=== PATIENT | female | born 1940 | race Hispanic/Latino ===

== ENCOUNTER 2019-07-10 18:51 | Emergency (ER) | payer MEDICARE ==
--- NOTE | 2019-07-10 19:23 | ER ---
Nurse's Notes [facility] Name: Angle Dowd Age: 79 yrs Sex: Female : 1940 Arrival Date: 07/10/2019 Time: 18:56 Bed Waiting [facility] MD: Diagnosis: ED Course: 07/09 18:56 Patient arrived in ED. as Administered Medications: No medications were administered Outcome: 19:22 Patient left the ED. ca1 Signatures: Kayli Juarez Cheryl RN RN ca1
== END 2019-07-10 19:22 | disposition left against medical advice (07) ==
LOC: ER 18:51
DX: Z53.21 Procedure and treatment not carried out due to patient leaving prior to being seen by health care provider (principal)

== ENCOUNTER → 2023-03-13 | Emergency (ER) | payer MEDICARE, OTHER ==
[~2023-03-13] MED LIST: ACETAMINOPHEN 500 MG TAB PO PRN; ASPIRIN 81 MG CHEWABLE TABLET ONE; HEPARIN 5000 UNIT/ML 1 ML VIAL ONE; HEPARIN/D5W 25,000 UNIT/500 ML BAG IV ONE; MORPHINE 2 MG/ML SYR ONE; ONDANSETRON 4 MG/2 ML VIAL IV PRN; ONDANSETRON 4 MG/2 ML VIAL ONE; POTASSIUM 25 MEQ EFFERV TAB ONE
--- OUTSIDE RECORDS SUMMARY | 2023-03-13 16:12 | XMS REPORT | Continuity of Care Document ---
Author Name Unknown Address [address] [place] [address] [facility] Address [address] [place] [address] Care Team Providers Care Gameplay Engineer Name Role Phone OG LEE Attending Clinician Unavailable LAURA ROY Attending Clinician Unavail able Kate Attending Clinician Unavailable RADHA Attending Clinician Unavailable Rizwan Prado Attending Clinician Unavailable MARIA ARMSTRONG Attending Clinician Unavail able Flores Vasquez Attending Clinician Unavailab DEBORAH Esparza Attending Clinician Unavailable PHYLICIA SANTO Attending Clinician Unavailable DAVIN GILLETTE Attending Clinician Unavailab SAEED Richards Attending Clinician Unavailable BRENDAN TAPIA Attending Clinician Unavailab VINICIUS Aguirre V. Attending Clinician Unavailable OG LEE Admitting Clinician Unavailable Pedro_F Admitting Clinician Unavailable ALINAA Admitting Clinician Unavailable MARIA ARMSTRONG Admitting Clinician Unavail able VINICIUS SHULTZ V. Admitting Clinician Unavailable Payers Payer Name Policy Type Policy Number Effective Date Expirati on Date Source [employer] (MEDICARE REPLACEMENT PPO) [id number] [facility] - MEDICARE COMPLETE (MEDICARE REPLACEMENT HMO) [id number] Encounters Start Date/Time End Date/Time Encounter Type Admission Type Attending Clinicians Care Facility Care Department Encounter ID Source 2023-01-13 20:25:00 Inpatient ER ROSANEENARY [facility] [id number] [facility] 2023-02-02 10:13:00 2023-02-02 10:13:00 Outpatient LAURA HANSEN [facility] [id number] [facility] 2023-01-20 10:37:00 2023-01-20 10:37:00 Outpatient LAURA HANSEN [facility] [id number] [facility] 2023-01-14 08:34:00 2023-01-19 16:17:00 Inpatient ER OG LEE [facility] [id number] [facility] 2023-01-14 08:34:00 2023-01-19 16:17:00 inpatient encounter [facility] [id number] [facility] [id number] 2023-01-14 00:00:00 2023-01-14 00:00:00 Outpatient Zunmaggiea_F [facility] [id number] [facility] 2021-09-09 04:01:00 2021-09-09 04:01:00 Outpatient DEDRICK FREEMAN [facility] [id number] [facility] 2020-12-12 20:47:00 2020-12-12 20:47:00 Outpatient EL Neret, Rizwan [facility] [id number] [facility] 2020-12-06 10:53:00 2020-12-06 10:53:00 Outpatient Rizwan Silva [facility] [id number] [facility] 2020-12-01 16:17:00 2020-12-05 14:25:00 Inpatient ER MARIA ARMSTRONG [facility] [id number] [facility] 2018-04-06 10:41:00 2018-04-06 10:41:00 Outpatient PedroLashonda [facility] [id number] [facility] 2017-12-22 08:01:00 2017-12-22 08:01:00 Outpatient Flores Adams [facility] [id number] [facility] 2017-12-09 11:37:00 2017-12-09 11:37:00 Outpatient Flores Adams [facility] [id number] [facility] 2014-09-05 15:36:00 2014-09-05 15:36:00 Outpatient SABA FARNAZ DEBORAH [facility] [id number] [facility] 2007-10-20 07:29:00 2007-10-20 07:29:00 Outpatient PHYLICIA NAPIER [facility] [id number] [facility] 2007-06-06 14:57:00 2007-06-06 16:30:00 Emergency ER DAVIN GILLETTE [facility] [id number] [facility] 2006-08-27 15:42:00 2006-08-27 15:42:00 Outpatient SAEED MARINA [facility] [id number] [facility] 2006-04-22 20:38:00 2006-04-23 03:35:00 Emergency ER BRENDAN TAPIA [facility] [id number] [facility] 2004-11-12 16:46:00 2004-11-14 10:30:00 Inpatient VINICIUS VANESSA [facility] [id number] [facility]
[2023-03-13 18:03] LABS: Protime INR 1.03
[2023-03-13 18:08] LABS: Absolute Lymphocytes (CBC) 2.2 K/uL (0.7-4.9); Hematocrit 40.3 % (36.0-45.0); Lymphocytes % 21.5 % (15.3-44.8); MCV 90.5 fL (80-100); MPV 8.1 fL (7.6-11.3); Platelets 204 thou/uL (152-406); RBC Red Blood Cell Count 4.45 M/uL (3.86-4.86)
[2023-03-13 18:12] LABS: Albumin 3.5 g/dL (3.4-5.0); Bilirubin Direct 0.2 mg/dL (0-0.2); Bilirubin Indirect, Calculated 0.5 mg/dL (0.2-0.8); Bilirubin Total 0.7 mg/dL (0.2-1.0); C-Reactive Protein 53.5 mg/L (<3.00); Magnesium 1.8 mg/dL (1.6-2.4); Potassium 3.1 mEq/L (3.5-5.1); Protein, Total 7.7 g/dL (6.4-8.2)
[2023-03-13 18:14] LABS: Troponin High Sensitivity 60.9 pg/mL (<58.9)
[2023-03-13 18:24] LABS: Ferritin 350.4 ng/mL (8-388)
--- NOTE | 2023-03-13 18:25 | RAD REPORT ---
EXAM DESCRIPTION: Deric Single View03/13/2023 6:05 pm CLINICAL HISTORY: Chest pain COMPARISON: none FINDINGS: A 6 millimeter nodular opacity mid right lung. Small calcified granulomas right lung. Left lung appears clear of acute infiltrate. Heart is normal size IMPRESSION: 6 millimeter nodular opacity mid right lung may represent a pulmonary nodule. Follow-up chest film in 6 months recommended for re-evaluation
--- NOTE | 2023-03-13 19:29 | P.HP ---
Certification for Inpatient Patient admitted to: Inpatient With expected LOS: >2 Midnights Practitioner: I am a practitioner with admitting privileges, knowledge of patient current condition, hospital course, and medical plan of care. Services: Services provided to patient in accordance with Admission requirements found in Title 42 Section 412.3 of the Code of Federal Regulations Patient History Date of Service: 03/13/23 Reason for admission: Generalized weakness, shortness of breathFever History of Present Illness: 84-year-old female with a past medical history of hypertension, atrial fibrillation, hyperlipidemia, rheumatoid arthritis, brought to ER with generalized weakness and fatigue also subjective fever which has been going on for the last 3 to 4 days since been progressively worsening and was brought to ER. Patient denies any chest pain. Review of Systems is unable to be obtained Physical Examination - Physical Exam General: Alert, In no apparent distress, Oriented x1 HEENT: Atraumatic, Normocephalic Neck: Supple Respiratory: Diminished, Crackles/rales Cardiovascular: Irregular heart rate/rhythm, Systolic murmur Capillary refill: <2 Seconds Gastrointestinal: Soft and benign, W/out hepatosplenomegaly, No ascites Musculoskeletal: No clubbing, No swelling Neurological: Other (Alert, Awake , non focal , Confused ) Lymphatics: No axilla or inguinal lymphadenopathy - Studies Laboratory Data (last 24 hrs) 03/13/23 03/13/23 03/13/23 17:40 17:40 17:40 WBC 10.10 Hgb 14.1 Hct 40.3 Plt Count 204 PT 11.3 INR 1.03 Sodium 135 L Potassium 3.1 L BUN 14 Creatinine 0.70 Glucose 119 H Magnesium 1.8 Total Bilirubin 0.7 AST 52 H ALT 44 Alkaline Phosphatase 95 Microbiology Data (last 24 hrs): 03/13/23 17:40 Nasopharnyx Influenza Type A Antigen Screen - Final 03/13/23 17:40 Nasopharnyx Influenza Type B Antigen Screen - Final 03/13/23 17:40 Throat Group A Streptococcus Rapid Screen - Final Assessment and Plan - Problems (Diagnosis) (1) COVID-19 Current Visit: Yes Status: Acute (2) Hypertension Current Visit: Yes Status: Acute (3) Hyperlipidemia Current Visit: Yes Status: Acute (4) Paroxysmal atrial fibrillation Current Visit: Yes Status: Acute Discharge Plan: Home - Advance Directives Does patient have a Living Will: No Does patient have a Durable POA for Healthcare: No - Code Status/Comfort Care Code Status: Full Code
--- NOTE | 2023-03-13 19:47 | RAD REPORT ---
EXAM DESCRIPTION: CT - Chest For Pe Angio - 03/13/2023 7:11 pm CLINICAL HISTORY: Chest pain COMPARISON: March 13, 2023 x-ray TECHNIQUE: Dynamically enhanced axial 3 mm thick images of the chest were obtained during administra tion of 100 mL Isovue 370 IV contrast. Coronal and oblique reconstruction images were generated and r eviewed. Exam utilizes a protocol for optimal evaluation of pulmonary arterial tree. Maximum intensity projections 3D imaging was utilized All CT scans are performed using dose optimization technique as appropriate and may include automated exposure control or mA/KV adjustment according to patient size. FINDINGS: A pulmonary embolus is not seen. A thoracic aortic aneurysm is not noted. A pleural effusion is not seen. Small pericardial effusion. Cardiomegaly. Occlusion left subclavian artery A lung consolidation is not present. A 9 millimeter right lower lobe nodule is mostly calcified. It does contain some noncalcified compone nt. Right lung calcified granulomas. IMPRESSION: Negative for a pulmonary embolism. Occlusion left subclavian artery 9 millimeter right lower lobe nodule mostly calcified most likely benign. A followup chest x-ray in 6 months recommended
--- NOTE | 2023-03-13 19:58 | EDPHYS ---
Physician Documentation [facility] Name: Angle Dowd Age: 83 yrs Sex: Female : 1940 Arrival Date: 03/13/2023 Time: 16:10 Bed 19 Private MD: ED Physician Matthew Das HPI: 03/13 17:00 This 83 yrs old Female presents to ER via EMS with complaints of COVID. cp 17:00 The patient or guardian reports cough, that is intermittent, flu symptoms, arthralgias, cp low-grade fever, no appetite, sore throat. Onset: The symptoms/episode began/occurred yesterday. Associated signs and symptoms: Pertinent positives: chest pain, started today, sore throat, Pertinent negatives: diarrhea, vomiting. Severity of symptoms: in the emergency department the symptoms are unchanged despite home interventions. Daughter reports patient tested positive for COVID-19 with home test. Daughter concerned that patient seems confused today. Historical: - Allergies: 16:55 No Known Allergies; nj1 - PMHx: 16:55 Hypertensive disorder; Depressive disorder; Coronary atherosclerosis; nj1 - Immunization history:: Client reports receiving the 2nd dose of the Covid vaccine. - Social history:: Smoking status: Patient/guardian denies using tobacco, Stopped _ months ago 2. ROS: 17:05 Constitutional: Positive for body aches, Negative for fever, cp 17:05 Eyes: Negative for injury, pain, redness, and discharge, cp 17:05 ENT: Positive for sore throat, Negative for drainage from ear(s), ear pain, difficulty swallowing, difficulty handling secretions, 17:05 Cardiovascular: Positive for chest pain, Negative for edema, palpitations, 17:05 Respiratory: Positive for cough, 17:05 Abdomen/GI: Negative for abdominal pain, vomiting, diarrhea, constipation, 17:05 : Negative for urinary symptoms, 17:05 Neuro: Positive for altered mental status, Negative for headache, 17:05 All other systems are negative, Exam: 17:10 Constitutional: The patient appears in no acute distress, alert, awake, cp non-diaphoretic, non-toxic, well developed, frail, uncomfortable, 17:10 Head/Face: Normocephalic, atraumatic. cp 17:10 Eyes: Periorbital structures: appear normal, Pupils: equal, round, and reactive to light and accomodation, Extraocular movements: intact throughout, Conjunctiva: normal, no exudate, no injection, Sclera: no appreciated abnormality, Lids and lashes: appear normal, bilaterally, 17:10 ENT: External ear(s): are unremarkable, Ear canal(s): are normal, clear, TM's: dullness, bilaterally, Nose: is normal, Mouth: Lips: dry, Oral mucosa: moist, Posterior pharynx: Airway: no evidence of obstruction, patent, erythema, that is mild, 17:10 Neck: ROM/movement: is normal, is supple, no meningismus, no nuchal rigidity, 17:10 Chest/axilla: Inspection: normal, Palpation: is normal, no crepitus, no tenderness, 17:10 Cardiovascular: Rate: normal, Rhythm: regular, Pulses: Pulses are 2+ in left radial artery. Edema: is not appreciated, JVD: is not appreciated, 17:10 Respiratory: the patient does not display signs of respiratory distress, Respirations: shallow respirations, that is mild, Breath sounds: decreased breath sounds, that are mild, throughout, 17:10 Abdomen/GI: Inspection: abdomen appears normal, Palpation: abdomen is soft and cp non-tender, in all quadrants, 17:10 Skin: cellulitis, is not appreciated, no rash present. cp 17:10 Neuro: Orientation: to person, place \T\ time. Mentation: able to follow commands, slow to respond, Motor: moves all fours, no focal deficits, 18:38 ECG was reviewed by the Attending Physician. cp Vital Signs: 16:53 BP 120 / 75; Pulse 89; Resp 18; Temp 97.7(TE); Pulse Ox 98% on R/A; Weight 41.73 kg; nj1 Height 4 ft. 11 in. ; 18:00 BP 125 / 73; Pulse 80; Resp 16; Pulse Ox 97% on R/A; me1 18:45 BP 122 / 97; Pulse 84; Resp 14; Pulse Ox 98% on R/A; me1 19:45 BP 113 / 88; Pulse 89; Resp 15; Pulse Ox 99% on R/A; me1 20:15 BP 122 / 86; Pulse 90; Resp 14; Pulse Ox 98% on R/A; me1 21:15 BP 116 / 83; Pulse 91; Resp 15; Pulse Ox 97% on R/A; me1 22:15 BP 108 / 82; Pulse 85; Resp 15; Pulse Ox 98% on R/A; me1 23:15 BP 129 / 82; Pulse 81; Resp 15; Pulse Ox 97% on R/A; me1 23:30 BP 127 / 87; Pulse 80; Resp 13; Pulse Ox 97% on R/A; me1 16:53 Body Mass Index 18.58 (41.73 kg, 149.86 cm) nj1 MDM: 16:58 Patient medically screened. chyna 19:55 ED course: transfer initiated to [facility] for vascular consult due occluded left cp subclavian artery noted on CT scan. 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 Will continue transfer to hospitalist services. 21:15 ED course: transfer declined at this time by DR Marquez after discussing conversation with cp vascular, exam, and CT findings. 21:45 ED course: Patient seen in ED by DR Paniagua who requests transfer to [facility] for cp vascular consult. 23:00 Data reviewed: vital signs, nurses notes, lab test result(s), EKG, radiologic studies, cp CT scan, plain films, I have discussed the patient's presentation/case with the attending Emergency Department Physician;. 23:15 ED course: VSS. After multiple discussions with DR Paniagua who requests transfer, patient cp is accepted to [facility] by DR Marquez. 03/13 16:58 Order name: Basic Metabolic Panel; Complete Time: 18:45 cp 03/13 18:15 Interpretation: Normal except: NA 135; K 3.1; GLUC 119; GFR 85. cp 03/13 16:58 Order name: CBC with Diff; Complete Time: 18:15 cp 03/13 21:11 Interpretation: Reviewed. cp 03/13 16:58 Order name: LFT's; Complete Time: 18:45 cp 03/13 18:16 Interpretation: Normal except: AST 52; GLOB 4.2; A/G 0.8. cp 03/13 16:58 Order name: Magnesium; Complete Time: 18:45 cp 03/13 16:58 Order name: NT PRO-BNP; Complete Time: 18:45 03/13 18:18 Interpretation: Abnormal: NT PRO-BNP 3068. 03/13 16:58 Order name: PT-INR; Complete Time: 18:15 03/13 16:58 Order name: Troponin HS; Complete Time: 18:45 03/13 18:19 Interpretation: Abnormal: Troponin HS 60.9. 03/13 16:58 Order name: Ferritin; Complete Time: 18:45 03/13 16:58 Order name: CRP; Complete Time: 18:45 03/13 18:18 Interpretation: Abnormal: C-REACTIVE PROT 53.50. 03/13 16:58 Order name: COVID-19 SARS RT PCR; Complete Time: 18:45 03/13 18:45 Interpretation: Abnormal: SARSCOV2 RT PCR POSITIVE. 03/13 16:58 Order name: Influenza Screen (a \T\ B); Complete Time: 18:45 03/13 16:58 Order name: Strep; Complete Time: 18:15 03/13 16:58 Order name: Lactate w/ 2H reflex if indic.; Complete Time: 18:15 03/13 18:08 Order name: Throat Culture EDFL 03/13 20:21 Order name: CBC with Automated Diff EDFL 03/13 20:21 Order name: Comprehensive Metabolic Panel [facility] 03/13 20:21 Order name: Troponin High Sensitivity [facility] 03/13 20:21 Order name: Troponin High Sensitivity; Complete Time: 22:27 EDFL 03/13 22:58 Interpretation: Troponin HS 8.9; Reviewed. 03/13 21:25 Order name: Ptt, Activated; Complete Time: 22:27 me1 03/13 16:58 Order name: XRAY Chest (1 view); Complete Time: 18:45 03/13 18:46 Order name: CT Chest For PE Angio; Complete Time: 19:49 03/13 19:51 Interpretation: Report reviewed. 03/13 16:58 Order name: EKG; Complete Time: 16:58 03/13 16:58 Order name: Cardiac monitoring; Complete Time: 18:35 03/13 16:58 Order name: EKG - Nurse/Tech; Complete Time: 18:35 03/13 16:58 Order name: IV Saline Lock; Complete Time: 17:45 cp 03/13 16:58 Order name: Labs collected and sent; Complete Time: 17:46 cp 03/13 16:58 Order name: O2 Per Protocol; Complete Time: 18:35 cp 03/13 16:58 Order name: O2 Sat Monitoring; Complete Time: 18:35 cp EC:38 Rate is 87 beats/min. Rhythm is regular. DC interval is normal. QRS interval is normal. cp QT interval is normal. T waves are Inverted in lead III. Administered Medications: 18:59 Drug: Ondansetron IVP 4 mg IVP once; over 2 minutes Route: IVP; Site: left wrist; me1 23:35 Follow up: Response: No adverse reaction me1 18:59 Drug: Potassium PO Effervescent Tablet 50 mEq PO once; dissolve in 4 ounces of water or me1 juice Route: PO; 23:35 Follow up: Response: No adverse reaction me1 19:00 Not Given (took 325mg asa this am. HELENE Lala aware. ): aspirinchewable tablet 324 me1 mg PO once; 81 mg tablets x 4 19:00 Drug: Potassium PO Effervescent Tablet 50 mEq PO once; dissolve in 4 ounces of water or me1 juice Route: PO; 23:35 Follow up: Response: No adverse reaction me1 19:00 Drug: morphine IVP or IV 1 mg IVP once over 4 mins Route: IVP; Infused Over: 4 mins; me1 Site: left wrist; 23:35 Follow up: Response: No adverse reaction me1 21:20 Drug: Heparin (OH-Bolus No thrombolytic) - HEParin IVP 60 units/kg IVP once; Max 5000 me1 units {Co-Signature: lg3 (Dior Jett RN).} Route: IVP; Site: left wrist; 23:36 Follow up: Response: No adverse reaction me1 21:21 Drug: Heparin (OH Drip) 12 units/kg/hr - ([place] [address] units, D5W IV 500 ml) IV at me1 calculated rate Per protocol; Max initial rate 1000 units/hr {Co-Signature: lg3 (Dior Jett RN).} Route: IV; Rate: calculated rate; Site: left wrist; 23:36 Follow up: Response: No adverse reaction; IV Status: Infusion continued upon transfer me1 Disposition Summary: 03/13/23 19:57 Transfer Ordered Notes: Transfer Location: [facility] cp Reason: Higher level of care cp Condition: Stable cp Problem: new cp Symptoms: have improved cp Accepting Physician: Doctor(03/13/23 23:57) me1 Diagnosis - Chest pain, unspecified cp Forms: - Medication Reconciliation Form cp - SBAR form cp Signatures: Dispatcher [employer] EDMatthew Cassidy MD MD cha Page, Corey, PA PA cp Lydia Walker, RN RN nj1 Laura Calloway RN RN me1 Dior Jett RN lg3 Corrections: (The following items were deleted from the chart) 23:57 19:57 Doctor cp [facility] 03/14 23:33 03/13 17:10 Cardiovascular: Rate: normal, Rhythm: regular, Edema: is not appreciated, cp JVD: is not appreciated, cp
--- NOTE | 2023-03-13 19:58 | ER ---
Nurse's Notes [facility] Name: Angle Dowd Age: 83 yrs Sex: Female : 1940 Arrival Date: 03/13/2023 Time: 16:10 Bed 19 Private MD: Diagnosis: Chest pain, unspecified Presentation: 03/13 16:26 Chief complaint: EMS states: Sore throat, malaise since yesterday, tested positive for me1 COVID at home. 16:26 Method Of Arrival: EMS: [facility] ct1 16:53 Chief complaint: Patient's son or daughter states: Sore throat, body aches, chills last nj1 night. Tested positive for COVID today. Coronavirus screen: Vaccine status: Patient reports receiving the 2nd dose of the covid vaccine. Ebola Screen: Patient denies travel to an Ebola-affected area in the 21 days before illness onset. Initial Sepsis Screen: Does the patient meet any 2 criteria? No. Patient's initial sepsis screen is negative. Does the patient have a suspected source of infection? No. Patient's initial sepsis screen is negative. Risk Assessment: Do you want to hurt yourself or someone else? Patient reports no desire to harm self or others. Onset of symptoms was March 12, 2023. 16:53 Acuity: ALTAGRACIA 3 nj1 Historical: - Allergies: 16:55 No Known Allergies; nj1 - PMHx: 16:55 Hypertensive disorder; Depressive disorder; Coronary atherosclerosis; nj1 - Immunization history:: Client reports receiving the 2nd dose of the Covid vaccine. - Social history:: Smoking status: Patient/guardian denies using tobacco, Stopped _ months ago 2. Screenin:48 [facility] ED Fall Risk Assessment (Adult) History of falling in the last 3 months, me1 including since admission No falls in past 3 months (0 pts) Confusion or Disorientation No (0 pts) Intoxicated or Sedated No (0 pts) Impaired Gait No (0 pts) Mobility Assist Device Used No (0 pt) Altered Elimination No (0 pt) Score/Fall Risk Level 0 - 2 = Low Risk Maintained a safe environment, Provided non-skid footwear, Hourly rounding (assess needs \T\ fall precautionary measures) done. Abuse screen: Denies threats or abuse. Nutritional screening: No deficits noted. Tuberculosis screening: No symptoms or risk factors identified. Assessment: 23:48 General: Appears uncomfortable, ill, well groomed, well developed, well nourished, me1 Behavior is calm, cooperative, appropriate for age, Reports Sore throat, malaise since yesterday, tested positive for COVID at home. Pain: Complains of pain in throat Pain does not radiate. Pain currently is 3 out of 10 on a pain scale. Quality of pain is described as tender, Pain began gradually, 2-3 days ago. Is continuous. Neuro: Level of Consciousness is awake, alert, obeys commands, Oriented to person, place, time, situation, Appropriate for age. Cardiovascular: Capillary refill < 3 seconds Patient's skin is warm and dry. Respiratory: Reports cough that is non-productive, persistent congestion Airway is patent Respiratory effort is even, unlabored, Respiratory pattern is regular, symmetrical. Vital Signs: 16:53 BP 120 / 75; Pulse 89; Resp 18; Temp 97.7(TE); Pulse Ox 98% on R/A; Weight 41.73 kg; nj1 Height 4 ft. 11 in. ; 18:00 BP 125 / 73; Pulse 80; Resp 16; Pulse Ox 97% on R/A; me1 18:45 BP 122 / 97; Pulse 84; Resp 14; Pulse Ox 98% on R/A; me1 19:45 BP 113 / 88; Pulse 89; Resp 15; Pulse Ox 99% on R/A; me1 20:15 BP 122 / 86; Pulse 90; Resp 14; Pulse Ox 98% on R/A; me1 21:15 BP 116 / 83; Pulse 91; Resp 15; Pulse Ox 97% on R/A; me1 22:15 BP 108 / 82; Pulse 85; Resp 15; Pulse Ox 98% on R/A; me1 23:15 BP 129 / 82; Pulse 81; Resp 15; Pulse Ox 97% on R/A; me1 23:30 BP 127 / 87; Pulse 80; Resp 13; Pulse Ox 97% on R/A; me1 16:53 Body Mass Index 18.58 (41.73 kg, 149.86 cm) [facility] ED Course: 16:13 Patient arrived in ED. ts1 16:51 Matthew Nava PA is PHCP. cp 16:51 Matthew Das MD is Attending Physician. cp 16:55 Triage completed. nj1 16:56 Arm band placed on right wrist. nj1 17:45 Lactate w/ 2H reflex if indic. Sent. bc6 17:45 Strep Sent. bc6 17:45 Influenza Screen (a \T\ B) Sent. bc6 17:45 COVID-19 SARS RT PCR Sent. bc6 17:45 CRP Sent. bc6 17:45 Ferritin Sent. bc6 17:46 Basic Metabolic Panel Sent. bc6 17:46 CBC with Diff Sent. bc6 17:46 LFT's Sent. bc6 17:46 Magnesium Sent. bc6 17:46 NT PRO-BNP Sent. bc6 17:46 PT-INR Sent. bc6 17:46 Troponin HS Sent. bc6 17:46 Inserted saline lock: 22 gauge in left forearm, using aseptic technique. Blood bc6 collected. 18:07 XRAY Chest (1 view) In Process Unspecified. EDMS 18:23 Laura Calloway, RN is Primary Nurse. me1 19:13 CT Chest For PE Angio In Process Unspecified. EDMS 20:06 initiated transfer with [facility] transfer center. Spoke with Luis Alberto Tobias. [facility] 21:27 Ptt, Activated Sent. me1 21:36 Julia from [facility] Transfer [place] called back to initated Doc to Doc with [address] Hospitalist and Matthew Nava. 22:20 Initiated transfer with [facility] transfer center. Spoke with Elizabeth Mccloud. jr 23:48 Patient has correct armband on for positive identification. Bed in low position. Call [facility] light in reach. Side rails up X 1. Provided Education on: POC. Verbalized understanding. . 23:48 No provider procedures requiring assistance completed. me1 23:57 IV discontinued, intact, bleeding controlled, No redness/swelling at site. Pressure me1 dressing applied. Administered Medications: 18:59 Drug: Ondansetron IVP 4 mg IVP once; over 2 minutes Route: IVP; Site: left wrist; me1 23:35 Follow up: Response: No adverse reaction me1 18:59 Drug: Potassium PO Effervescent Tablet 50 mEq PO once; dissolve in 4 ounces of water or me1 juice Route: PO; 23:35 Follow up: Response: No adverse reaction me1 19:00 Not Given (took 325mg asa this am. HELENE Lala aware. ): aspirinchewable tablet 324 me1 mg PO once; 81 mg tablets x 4 19:00 Drug: Potassium PO Effervescent Tablet 50 mEq PO once; dissolve in 4 ounces of water or me1 juice Route: PO; 23:35 Follow up: Response: No adverse reaction me1 19:00 Drug: morphine IVP or IV 1 mg IVP once over 4 mins Route: IVP; Infused Over: 4 mins; me1 Site: left wrist; 23:35 Follow up: Response: No adverse reaction me1 21:20 Drug: Heparin (MT-Bolus No thrombolytic) - HEParin IVP 60 units/kg IVP once; Max 5000 me1 units {Co-Signature: [email or web address] (Dior Jett RN).} Route: IVP; Site: left wrist; 23:36 Follow up: Response: No adverse reaction me1 21:21 Drug: Heparin (MT Drip) 12 units/kg/[place] - ([place] [address] units, D5W IV 500 ml) IV at me1 calculated rate Per protocol; Max initial rate 1000 units/hr {Co-Signature: [email or web address] (Dior Jett RN).} Route: IV; Rate: calculated rate; Site: left wrist; 23:36 Follow up: Response: No adverse reaction; IV Status: Infusion continued upon transfer me1 Medication: 23:48 VIS not applicable for this client. me1 Outcome: 19:57 ER care complete, transfer ordered by MD. caraballo 23:57 Transferred by ground EMS to [facility], Transfer form completed. me1 Note: Report given to TRISHA Shirley 23:57 Condition: stable 23:57 Instructed on the need for transfer, 23:57 Patient left the ED. me1 Signatures: Dispatcher [employer] EDMS Matthew Nava PA PA cp Carowatson, Breana bc6 Lydia Walker RN RN nj1 Ninfa Hare PAS PAS ts1 Laura Calloway RN RN me1 Doris Dickens jr12 Dior Jett RN lg3 Corrections: (The following items were deleted from the chart) 16:57 16:53 Pulse 89bpm; Resp 18bpm; Pulse Ox 98% RA; Temp 97.7F Temporal; 41.73 kg; Height 4 nj1 ft. 11 in.; BMI: 18.5; nj1 23:48 16:26 Chief complaint: EMS states: Sore throat, malaise since yesterday, tested me1 positive for COVID at home. nj1
[2023-03-14 01:30] VITALS: TEMP 97.7
[2023-03-14 01:44] VITALS: O2SAT 97
[2023-03-14 01:56] VITALS: BP 127/87
--- NOTE | 2023-03-15 17:03 | EKG ---
Test Date: 2023-03-13 Test Time: 18:31:45 Circulation Worker: MEASUREMENT RESULTS: Intervals: Rate: 87 WI: 164 QRSD: 70 QT: 378 QTc: 454 [place]: P: 64 WI: 164 QRS: 16 T: 18 INTERPRETIVE STATEMENTS: Sinus rhythm with premature atrial complexes with aberrant conduction Nonspecific T wave abnormality Abnormal ECG No previous ECG available for comparison Electronically Signed On 03-15-23 16:57:36 [employer] by Ben Cartagena
== END ==
LOC: ER 16:10
DX: U07.1 COVID-19 (principal); R41.82 Altered mental status, unspecified; R05.9 Cough, unspecified; I10 Essential (primary) hypertension
CPT/HCPCS: 96365; 93005; 87070; 85025; 80048; 36415; 83735; 85610; 80076; 87081; 83605; 85730; 84484 ×2; 82728; 83880; 87635; 86140; 87804 ×2; 71275; 71045; 96375; 99285; 96366; Q9967; J1644; J2270; J2405

== ENCOUNTER → 2023-04-17 | Emergency (ER) | payer OTHER ==
[~2023-04-17] MED LIST changes: -ACETAMINOPHEN 500 MG TAB PO PRN; +ALBUMIN HUMAN 25% 100 ML IV ONE; -ASPIRIN 81 MG CHEWABLE TABLET ONE; -HEPARIN 5000 UNIT/ML 1 ML VIAL ONE; -HEPARIN/D5W 25,000 UNIT/500 ML BAG IV ONE; -MORPHINE 2 MG/ML SYR ONE; +NA CHLORIDE 0.9% 100 ML ONE; +NA CHLORIDE 0.9% 3,000 ML ONE; +NS KCL 20MEQ 1,000 ML IV ONE; -ONDANSETRON 4 MG/2 ML VIAL IV PRN; +PANTOPRAZOLE 40 MG INJ ONE; +PIPERACIL/TAZO 3.375 GM VIAL IV ONE; -POTASSIUM 25 MEQ EFFERV TAB ONE
[2023-04-17 08:12] LABS: Protime INR 1.04
[2023-04-17 08:13] LABS: Absolute Lymphocytes (CBC) 3.4 K/uL (0.7-4.9); Hematocrit 35.6 % (36.0-45.0); Lymphocytes % 19.9 % (15.3-44.8); MCV 97.4 fL (80-100); MPV 8.2 fL (7.6-11.3); Platelets 527 thou/uL (152-406); RBC Red Blood Cell Count 3.65 M/uL (3.86-4.86)
--- NOTE | 2023-04-17 08:16 | RAD REPORT ---
EXAM DESCRIPTION: CTAbdomen Pelvis Wo Contrast - 04/17/2023 8:03 am CLINICAL HISTORY: ABD PAIN COMPARISON: Chest For Pe Angio dated 03/13/2023 TECHNIQUE: CT of the abdomen and pelvis was performed. All CT scans are performed using dose optimization technique as appropriate and may include automated exposure control or mA/KV adjustment according to patient size. FINDINGS: Lower chest: Small pericardial effusion. Coronary artery calcifications. Mitral annular ca lcifications. Tiny left pleural effusion. Chronic lung changes Liver: No acute abnormality or suspicious lesions. Biliary: Distended gallbladder which is nonspecific. Extrahepatic biliary duct dilatation. The common bile duct measures 9 millimeters. Stomach: No significant focal abnormality. Duodenum: No significant focal abnormality. Pancreas: No significant abnormality. Spleen: No significant abnormality. Adrenal: No suspicious lesions. Adrenal thickening. Kidney/ureter: No hydronephrosis. No renal calculi. Retroperitoneum: No retroperitoneal adenopathy. Vascular: No aneurysm. Heavily calcified abdominal aorta. Bowel: Moderate stool in the descending colon, sigmoid, and rectum.. Peritoneum: No ascites or free air. Bladder: Grossly unremarkable. Reproductive: No adnexal masses. Bones: Age indeterminate T12 and L1 compression fractures. These levels were not included in the fiel d of view on the prior chest CT from 03/13/2023. Other: n/a IMPRESSION: No definite acute intra-abdominal or pelvic finding. Mild constipation. Extrahepatic biliary ductal dilatation of uncertain clinical significance. The gallbladder is disten ded but no pericholecystic inflammatory changes. Correlate with LFTs. Probably either subacute or chronic T12 and L1 compression fractures.
[2023-04-17 08:20] LABS: SARS-CoV-2 Antigen Rapid Res Negative (Negative)
[2023-04-17 08:21] LABS: Albumin 3.2 g/dL (3.4-5.0); Bilirubin Direct 0.7 mg/dL (0-0.2); Bilirubin Indirect, Calculated 0.6 mg/dL (0.2-0.8); Bilirubin Total 1.3 mg/dL (0.2-1.0); Protein, Total 6.8 g/dL (6.4-8.2)
--- NOTE | 2023-04-17 08:30 | RAD REPORT ---
EXAM DESCRIPTION: RAD - Chest Single View - 04/17/2023 8:20 am CLINICAL HISTORY: COUGH COMPARISON: Chest Single View dated 03/13/2023 FINDINGS: Lines: None. Lungs: No evidence of edema or pneumonia. Calcified right upper lobe nodules . Pleural: No significant pleural effusions or pneumothorax. Cardiac: Similar size and configuration Mediastinum: Within normal limits. Bones: No acute fractures. Other: None IMPRESSION: No acute cardiopulmonary disease.
[2023-04-17 08:32] LABS: Magnesium 1.9 mg/dL (1.6-2.4); Potassium 3.1 mEq/L (3.5-5.1)
[2023-04-17 08:33] LABS: Troponin High Sensitivity 202.7 pg/mL (<58.9)
--- NOTE | 2023-04-17 09:52 | RAD REPORT ---
EXAM DESCRIPTION: US - Abdomen Exam Limited - 04/17/2023 9:38 am CLINICAL HISTORY: ABD PAIN COMPARISON: Abdomen Pelvis Wo Contrast dated 04/17/2023 FINDINGS: The gallbladder demonstrates no gallstones. Borderline gallbladder wall thickening measuri ng 3 millimeters. The common bile duct is dilated measuring 9 mm. The gallbladder is distended. A son ographic Meade's sign was reported. The liver demonstrates no findings of intrahepatic biliary dilatation. IMPRESSION: Negative for cholelithiasis but positive sonographic Meade's sign with dilated gallblad iesha and borderline gallbladder wall thickening could indicate cholecystitis (possibly acalculous). In addition, the common bile duct is dilated. MRCP/ERCP could further evaluate the common bile duct.
--- NOTE | 2023-04-17 10:00 | ER ---
Nurse's Notes [facility] Name: Angle Dowd Age: 83 yrs Sex: Female : 1940 Arrival Date: 04/17/2023 Time: 07:08 Bed 13 Private MD: Diagnosis: Severe sepsis with septic shock;Other cholelithiasis with obstruction-dilated CBD;Dehydration;Elevated white blood cell count;Hypokalemia;Non ST elevation OR;Vomiting;GI Bleed/ Gastrointestinal hemorrhage, unspecified-UPPER , STABLE;Paroxysmal atrial fibrillation Presentation: 04/17 07:28 Chief complaint: Patient's son or daughter states: Refusing food/drink x 3 days, c/o hb abdominal pain yesterday, dark vomit x 3 today. Coronavirus screen: At this time, the client does not indicate any symptoms associated with coronavirus-19. Ebola Screen: No symptoms or risks identified at this time. Initial Sepsis Screen: Does the patient meet any 2 criteria? RR > 20 per min. HR > 90 bpm. Yes Does the patient have a suspected source of infection? No. Patient's initial sepsis screen is negative. Risk Assessment: Do you want to hurt yourself or someone else? Patient reports no desire to harm self or others. Onset of symptoms was April 14, 2023. 07:28 Method Of Arrival: Wheelchair hb 07:28 Acuity: ALTAGRACIA 2 hb Triage Assessment: 07:30 General: Appears in no apparent distress. Behavior is calm, cooperative, appropriate ko1 for age. GI: Reports lower abdominal pain, upper abdominal pain, nausea, vomiting. Historical: - Allergies: 07:31 No Known Allergies; hb - Home Meds: 07:31 sulfasalazine 500 mg oral tablet 2 times per day [Active]; escitalopram oxalate 5 mg hb oral tablet [Active]; diclofenac sodium 50 mg oral tablet, delayed release (enteric coated) every 12 hours [Active]; aspirin 325 mg Oral tablet daily [Active]; amlodipine 5 mg tablet as needed [Active]; nitroglycerin 0.4 mg SL Tablet, Sublingual as needed [Active]; - PMHx: 07:31 coronary atherosclerosis; depressive disorder; Hypertensive disorder; hb - Immunization history:: Adult Immunizations unknown. - Social history:: Smoking status: Patient/guardian denies using tobacco. Screenin:[facility] Fall Risk Assessment (Adult) History of falling in the last 3 months, ko1 including since admission No falls in past 3 months (0 pts) Confusion or Disorientation No (0 pts) Intoxicated or Sedated No (0 pts) Impaired Gait Yes (1 pt) Mobility Assist Device Used Yes (1 pt) Altered Elimination Yes (1 pt) Score/Fall Risk Level 3 or more points = High Risk Oriented to surroundings, Maintained a safe environment, Educated pt \T\ family on fall prevention, incl call for assistance when getting out of bed, Assessed \T\ reinforced patient's understanding of fall precautions, Provided non-skid footwear, Hourly rounding (assess needs \T\ fall precautionary measures) done, Used ambulatory aids as needed (educated on \T\ assisted with), Used gait belt as appropriate Implemented a Fall Risk Plan of Care, Apply high fall risk patient identification: yellow non skid footwear/ fall signage, Remained w/in arm's length of patient and in sight while toileting, Offered frequent toileting (1:1 observation), Remained with patient while ambulating, Utilized family, sitter, or virtual cryogenics engineer as indicated. Abuse screen: Denies threats or abuse. Denies injuries from another. Nutritional screening: No deficits noted. Tuberculosis screening: No symptoms or risk factors identified. Assessment: 07:30 Pain: Complains of pain in abdomen. GI: Abdomen is non-distended. ko1 Vital Signs: 07:28 BP 80 / 55; Pulse 166; Resp 22; Temp 98.3(O); Pulse Ox 99% on R/A; Weight 41.73 kg; hb Height 5 ft. 0 in. ; Pain 5/10; 08:49 BP 106 / 62; Pulse 97; Resp 14; Pulse Ox 97% ; ko1 09:30 BP 80 / 53; Pulse 72; Resp 17; Pulse Ox 99% ; ko1 10:15 BP 74 / 53; Pulse 64; Resp 16; Pulse Ox 100% on R/A; ko1 10:45 BP 96 / 78; Pulse 80; Resp 15; Pulse Ox 100% ; ko1 11:15 BP 93 / 79; Pulse 63; Resp 16; Pulse Ox 99% ; ko1 12:20 BP 99 / 69; Pulse 66; Resp 15; Pulse Ox 98% ; ko1 07:28 Body Mass Index 17.97 (41.73 kg, 152.4 cm) hb 07:28 Pain Scale: Adult hb [place] Coma Score: 08:06 Eye Response: spontaneous(4). Motor Response: obeys commands(6). Verbal Response: chyna oriented(5). Total: 15. NIH Stroke Scale Scores: 08:06 NIHSS Score: 0 chyna ED Course: 07:11 Patient arrived in ED. gm2 07:12 Matthew Das MD is Attending Physician. chyna 07:16 Jeimy Woo, TRISHA is Primary Nurse. ko1 07:30 Patient has correct armband on for positive identification. Placed in gown. Bed in low ko1 position. Call light in reach. Side rails up X2. Client placed on continuous cardiac and pulse oximetry monitoring. NIBP monitoring applied. electronic device monitor on. Door closed. Noise minimized. Lights dimmed. Warm blanket given. Pillow given. 07:30 No provider procedures requiring assistance completed. ko1 07:31 Triage completed. hb 07:38 Arm band placed on. hb 07:45 Inserted saline lock: 22 gauge in right antecubital area, using aseptic technique. ko1 Blood collected. 08:03 TSH Sent. ko1 08:03 Lactate w/ 2H reflex if indic. Sent. ko1 08:03 Blood Culture Adult (2) Sent. ko1 08:04 SARS RAPID Sent. ko1 08:04 Flu Sent. ko1 08:04 Lipase Sent. ko1 08:04 Basic Metabolic Panel Sent. ko1 08:04 CBC with Diff Sent. ko1 08:04 LFT's Sent. ko1 08:04 Magnesium Sent. ko1 08:04 NT PRO-BNP Sent. ko1 08:04 PT-INR Sent. ko1 08:04 Troponin HS Sent. ko1 08:05 CT Abd/Pelvis - Without Contrast In Process Unspecified. EDMS 08:13 TSH Sent. ko1 08:13 Type And Screen Sent. ko1 08:22 XRAY Chest (1 view) In Process Unspecified. EDMS 08:35 Bb Add On Sent. ko1 09:39 US Abdomen Limited In Process Unspecified. EDMS 09:[address] Das with Saksia Rondon Rn from the [facility] Transfer eb center. 10:[address] Sheriff the hospitalist application software developer or [facility] with Dr. Das for eb patient transfer consultation. 10:44 Urinalysis w/ reflexes Sent. ko1 11:38 administrative approval given by Saskia Rondon Rn/ patient has been accepted [facility] 16 tower 1620/ Dr. Bing Sheriff has accepted the patient in transfer/ report to be called to [phone]. 12:20 Provided Education on: na. ko1 12:20 Patient transferred, IV remains in place. ko1 Administered Medications: 08:08 Drug: NS 0.9% IV 1000 ml IV at 1 bolus Per protocol; 1000 mL bolus Route: IV; Rate: 1 ko1 bolus; Site: right antecubital; 11:37 Follow up: Response: No adverse reaction; IV Status: Completed infusion; IV Intake: ko1 1000ml 08:14 Drug: Pantoprazole IVP 80 mg IVP once Route: IVP; Site: right antecubital; ko1 11:37 Follow up: Response: No adverse reaction ko1 08:42 Drug: Ondansetron IVP 4 mg IVP once; over 2 minutes Route: IVP; Site: right antecubital;ko1 11:35 Follow up: Response: No adverse reaction; Nausea is decreased ko1 08:48 Drug: Piperacillin-Tazobactam IVPB 3.375 grams IVPB once over 60 mins; (mix in NS 100 ko1 mL) Route: IVPB; Rate: 100 ml/hr; Infused Over: 60 mins; Site: right antecubital; Delivery: Secondary tubing; 11:36 Follow up: Response: No adverse reaction; IV Status: Completed infusion; IV Intake: ko1 100ml 09:01 Not Given (Duplicate Order): ns 0.9% 1000 ml IV at 125 ml/hr continuous chyna 09:55 Drug: NS 0.9% IV 500 ml IV at bolus once Route: IV; Rate: bolus; Site: right ko1 antecubital; 11:36 Follow up: Response: No adverse reaction; IV Status: Completed infusion; IV Intake: ko1 500ml 10:44 Drug: NS 0.9% with KCl IV 20 mEq/L 1000 ml IV at 125 ml/hr continuous Route: IV; Rate: ko1 125 ml/hr; Site: right antecubital; 11:03 Drug: Albumin IVPB 25 grams 100 ml IVPB once; (Note: Albumin 25% concentration) Volume: ko1 100 ml; Route: IVPB; Site: right antecubital; 11:35 Follow up: Response: No adverse reaction ko1 11:36 Follow up: IV Status: Completed infusion; IV Intake: 100ml ko1 11:04 Drug: Solu-CORTEF IVP 100 mg IVP once Route: IVP; Site: right antecubital; ko1 11:35 Follow up: Response: No adverse reaction ko1 Medication: 07:30 VIS not applicable for this client. ko1 Intake: 11:36 IV: 100ml; Total: 100ml. ko1 11:36 IV: 100ml; Total: 200ml. ko1 11:36 IV: 500ml; Total: 700ml. ko1 11:37 IV: 1000ml; Total: 1700ml. ko1 Outcome: 09:59 ER care complete, transfer ordered by chyna 12:20 Transferred by private ambulance [place]. to [facility], Transfer ko1 form completed. X-rays sent w/ patient. 12:20 Condition: improved 12:20 Instructed on the need for transfer, 12:28 Patient left the ED. ko1 NIH Stroke Scale - NIH Stroke Score Date: 04/17/2023 Time: 08:06 Total Score = 0 10. Dysarthria (speech clarity - read or repeat words) - 0(Normal) 11. Extinction and Inattention (visual/tactile/auditory/spatial/personal) - 0(No abnormality) 1a. Level of Consciousness (LOC) - 0(Alert) 1b. Level of Consciousness (LOC) (Month \T\ Age) - 0(Both) 1c. LOC Commands (Open \T\ Closes Eyes/Coffee Sampler) - 0(Both) 2. Best Gaze (Lateral Gaze Paresis) - 0(Normal) 3. Visual Field Loss - 0(No visual loss) 4. Facial Palsy - 0(Normal) 5a. Left Arm: Motor (10-second hold) - 0(No drift) 5b. Right Arm: Motor (10-second hold) - 0(No drift) 6a. Left Leg: Motor (5-second hold - always test supine) - 0(No drift) 6b. Right Leg: Motor (5-second hold - always test supine) - 0(No drift) 7. Limb Ataxia (finger/nose \T\ heel/loera - test with eyes open) - 0(Absent) 8. Sensory Loss (pinprick arms/legs/face) - 0(Normal) 9. Best Language: Aphasia (description/naming/reading) - 0(No aphasia) Initials: chyna Signatures: Dispatcher [employer] Matthew Jones MD MD cha Baxter, Heather, RN RN hb Botello, Elizabeth eb Oliver, Kathy, RN RN jose luis1 Karen Leahy gm2 Corrections: (The following items were deleted from the chart) 10:36 10:30 connected the hospitalist application software developer or [facility] with Dr. Das for eb patient transfer consultation. 11:52 09:[address] Das with Nancy Zeng Rn from the [facility] Transfer center. eb
--- NOTE | 2023-04-17 10:00 | EDPHYS ---
Physician Documentation [facility] Name: Angle Dowd Age: 83 yrs Sex: Female : 1940 Arrival Date: 04/17/2023 Time: 07:08 Bed 13 Private MD: ED Physician Matthew Das HPI: 04/17 08:01 This 83 yrs old Female presents to ER via Wheelchair with complaints of chyna General Weakness, Decreased Appetite, Nausea/Vomiting. 08:01 The patient presents to the emergency department with nausea, vomiting, described as chyna coffee ground in nature, dark brown, abdominal pain, described as crampy. Onset: The symptoms/episode began/occurred 3 day(s) ago. Historical: - Allergies: :31 No Known Allergies; hb - Home Meds: :31 sulfasalazine 500 mg oral tablet 2 times per day [Active]; escitalopram oxalate 5 mg hb oral tablet [Active]; diclofenac sodium 50 mg oral tablet, delayed release (enteric coated) every 12 hours [Active]; aspirin 325 mg Oral tablet daily [Active]; amlodipine 5 mg tablet as needed [Active]; nitroglycerin 0.4 mg SL Tablet, Sublingual as needed [Active]; - PMHx: 07:31 coronary atherosclerosis; depressive disorder; Hypertensive disorder; hb - Immunization history:: Adult Immunizations unknown. - Social history:: Smoking status: Patient/guardian denies using tobacco. ROS: 08:06 Constitutional: Negative for fever, chills, and weight loss, Eyes: Negative for injury, chyna pain, redness, and discharge, ENT: Negative for injury, pain, and discharge, Neck: Negative for injury, pain, and swelling, Cardiovascular: Negative for chest pain, palpitations, and edema, Respiratory: Negative for shortness of breath, cough, wheezing, and pleuritic chest pain, Back: Negative for injury and pain, : Negative for injury, bleeding, discharge, and swelling, MS/Extremity: Negative for injury and deformity, Neuro: Negative for headache, weakness, numbness, tingling, and seizure, Psych: Negative for depression, anxiety, suicide ideation, homicidal ideation, and hallucinations, Allergy/Immunology: Negative for hives, rash, and allergies, Endocrine: Negative for neck swelling, polydipsia, polyuria, polyphagia, and marked weight changes, 08:06 Abdomen/GI: Positive for abdominal pain, nausea and vomiting, hematemesis, Exam: 08:06 Constitutional: This is a well developed, well nourished patient who is awake, alert, chyna and in no acute distress. Head/Face: Normocephalic, atraumatic. Eyes: Pupils equal round and reactive to light, extra-ocular motions intact. Lids and lashes normal. Conjunctiva and sclera are non-icteric and not injected. Cornea within normal limits. Periorbital areas with no swelling, redness, or edema. ENT: Nares patent. No nasal discharge, no septal abnormalities noted. Tympanic membranes are normal and external auditory canals are clear. Oropharynx with no redness, swelling, or masses, exudates, or evidence of obstruction, uvula midline. Mucous membranes moist. Neck: Trachea midline, no thyromegaly or masses palpated, and no cervical lymphadenopathy. Supple, full range of motion without nuchal rigidity, or vertebral point tenderness. No Meningismus. Chest/axilla: Normal chest wall appearance and motion. Nontender with no deformity. No lesions are appreciated. Cardiovascular: Regular rate and rhythm with a normal S1 and S2. No gallops, murmurs, or rubs. Normal PMI, no JVD. No pulse deficits. Respiratory: Lungs have equal breath sounds bilaterally, clear to auscultation and percussion. No rales, rhonchi or wheezes noted. No increased work of breathing, no retractions or nasal flaring. Abdomen/GI: Soft, non-tender, with normal bowel sounds. No distension or tympany. No guarding or rebound. No evidence of tenderness throughout. Back: No spinal tenderness. No costovertebral tenderness. Full range of motion. Female : Normal external genitalia. MS/ Extremity: Pulses equal, no cyanosis. Neurovascular intact. Full, normal range of motion. Neuro: Awake and alert, GCS 15, oriented to person, place, time, and situation. Cranial nerves II-XII grossly intact. Motor strength 5/5 in all extremities. Sensory grossly intact. Cerebellar exam normal. Normal gait. Psych: Awake, alert, with orientation to person, place and time. Behavior, mood, and affect are within normal limits. 08:06 ECG was reviewed by the Attending Physician. 08:06 Abdomen/GI: Inspection: abdomen appears normal, Bowel sounds: normal, Palpation: mild abdominal tenderness, in all quadrants, Rectal exam: rectal tone normal, Stool: guaiac negative, hemorrhoid(s), are not appreciated, mass, is not appreciated, swelling, is not appreciated, tenderness, is not appreciated, Liver: no appreciated palpable abnormalities, Hernia: not appreciated, 08:06 Skin: Appearance: Color: pale, Temperature: normal temperature, Moisture: normal moisture, petechiae, not noted, ecchymosis, not noted, flushing, not noted, abscess, not appreciated, cellulitis, is not appreciated, 08:17 ECG was reviewed by the Attending Physician. chyna Vital Signs: 07:28 BP 80 / 55; Pulse 166; Resp 22; Temp 98.3(O); Pulse Ox 99% on R/A; Weight 41.73 kg; hb Height 5 ft. 0 in. ; Pain 5/10; 08:49 BP 106 / 62; Pulse 97; Resp 14; Pulse Ox 97% ; ko1 09:30 BP 80 / 53; Pulse 72; Resp 17; Pulse Ox 99% ; ko1 10:15 BP 74 / 53; Pulse 64; Resp 16; Pulse Ox 100% on R/A; ko1 10:45 BP 96 / 78; Pulse 80; Resp 15; Pulse Ox 100% ; ko1 11:15 BP 93 / 79; Pulse 63; Resp 16; Pulse Ox 99% ; ko1 12:20 BP 99 / 69; Pulse 66; Resp 15; Pulse Ox 98% ; ko1 07:28 Body Mass Index 17.97 (41.73 kg, 152.4 cm) hb 07:28 Pain Scale: Adult hb NIH Stroke Scale Scores: 08:06 NIHSS Score: 0 chyna Wei Coma Score: 08:06 Eye Response: spontaneous(4). Motor Response: obeys commands(6). Verbal Response: chyna oriented(5). Total: 15. MDM: 07:12 Patient medically screened. chyna 08:16 Differential diagnosis: arrythmia, dehydration, Nonspecific abd pain, gastritis, chyna pancreatitis. Data reviewed: vital signs, nurses notes, EMS record, lab test result(s), EKG, radiologic studies, CT scan, plain films. Consideration of Admission/Observation Patient was admitted/placed on observation. Escalation of care including admission/observation considered. I considered the following discharge prescriptions or medication management in the emergency department Medications were administered in the Emergency Department. See MAR. Independent interpretation of the following test(s) in the Emergency Department EKG: See my EKG interpretation above. Test considered but Not performed: Ultrasound no abd usg. Care significantly affected by the following chronic conditions: Hypertension, Liver Disease, cad, deperssive. 04/17 07:21 Order name: Basic Metabolic Panel; Complete Time: 09:00 [facility] 04/17 07:21 Order name: CBC with Diff; Complete Time: 08:20 [facility] 04/17 07:21 Order name: LFT's; Complete Time: 09:00 [facility] 04/17 07:21 Order name: Magnesium; Complete Time: 09:00 [facility] 04/17 07:21 Order name: NT PRO-BNP; Complete Time: 09:00 [facility] 04/17 07:21 Order name: PT-INR; Complete Time: 08:20 [facility] 04/17 07:21 Order name: Troponin HS; Complete Time: 09:00 [facility] 04/17 07:21 Order name: Lipase; Complete Time: 09:00 [facility] 04/17 07:21 Order name: Urinalysis w/ reflexes [facility] 04/17 07:21 Order name: Flu; Complete Time: 09:00 [facility] 04/17 07:21 Order name: SARS RAPID; Complete Time: 09:00 [facility] 04/17 07:21 Order name: Blood Culture Adult (2) [facility] 04/17 07:21 Order name: Lactate w/ 2H reflex if indic.; Complete Time: 09:00 [facility] 04/17 07:30 Order name: TSH; Complete Time: 09:00 [facility] 04/17 08:02 Order name: Type And Screen; Complete Time: 09:40 [facility] 04/17 08:10 Order name: Bb Add On eb 04/17 08:20 Order name: AMMONIA; Complete Time: 10:30 [facility] 04/17 09:15 Order name: ABO/RH no charge; Complete Time: 09:40 EDMS 04/17 11:31 Order name: Lactate Sepsis 2 HR Follow-up [facility] 04/17 07:21 Order name: XRAY Chest (1 view); Complete Time: 09:00 [facility] 04/17 07:21 Order name: CT Abd/Pelvis - Without Contrast; Complete Time: 08:20 [facility] 04/17 08:21 Order name: US Abdomen Limited; Complete Time: 10:30 [facility] 04/17 07:21 Order name: EKG; Complete Time: 07:22 [facility] 04/17 07:21 Order name: Cardiac monitoring; Complete Time: 08:04 [facility] 04/17 07:21 Order name: EKG - Nurse/Tech; Complete Time: 08:13 04/17 07:21 Order name: IV Saline Lock; Complete Time: 08:04 [facility] 04/17 07:21 Order name: Labs collected and sent; Complete Time: 08:04 [facility] 04/17 07:21 Order name: O2 Per Protocol; Complete Time: 08:04 [facility] 04/17 07:21 Order name: O2 Sat Monitoring; Complete Time: 08:04 [facility] 04/17 08:20 Order name: IV Saline Lock - Large Bore; Complete Time: 08:36 [facility] EC:17 Rate is 82 beats/min. Rhythm is regular. QRS [place] is Normal. MD interval is normal. QRS chyna interval is prolonged at 497 msec. QT interval is normal. No Q waves. T waves are Normal. ST Segment is depressed in leads I, II, III, aVL, aVF, V1, V2, V3, V4, V5, V6. Clinical impression: NSR w/ Non-specific ST/T Changes. Interpreted by me. Reviewed by me. Administered Medications: 08:08 Drug: NS 0.9% IV 1000 ml IV at 1 bolus Per protocol; 1000 mL bolus Route: IV; Rate: 1 ko1 bolus; Site: right antecubital; 11:37 Follow up: Response: No adverse reaction; IV Status: Completed infusion; IV Intake: ko1 1000ml 08:14 Drug: Pantoprazole IVP 80 mg IVP once Route: IVP; Site: right antecubital; ko1 11:37 Follow up: Response: No adverse reaction ko1 08:42 Drug: Ondansetron IVP 4 mg IVP once; over 2 minutes Route: IVP; Site: right antecubital;ko1 11:35 Follow up: Response: No adverse reaction; Nausea is decreased ko1 08:48 Drug: Piperacillin-Tazobactam IVPB 3.375 grams IVPB once over 60 mins; (mix in NS 100 ko1 mL) Route: IVPB; Rate: 100 ml/hr; Infused Over: 60 mins; Site: right antecubital; Delivery: Secondary tubing; 11:36 Follow up: Response: No adverse reaction; IV Status: Completed infusion; IV Intake: ko1 100ml 09:01 Not Given (Duplicate Order): ns 0.9% 1000 ml IV at 125 ml/hr continuous chyna 09:55 Drug: NS 0.9% IV 500 ml IV at bolus once Route: IV; Rate: bolus; Site: right ko1 antecubital; 11:36 Follow up: Response: No adverse reaction; IV Status: Completed infusion; IV Intake: ko1 500ml 10:44 Drug: NS 0.9% with KCl IV 20 mEq/L 1000 ml IV at 125 ml/hr continuous Route: IV; Rate: ko1 125 ml/hr; Site: right antecubital; 11:03 Drug: Albumin IVPB 25 grams 100 ml IVPB once; (Note: Albumin 25% concentration) Volume: ko1 100 ml; Route: IVPB; Site: right antecubital; 11:35 Follow up: Response: No adverse reaction ko1 11:36 Follow up: IV Status: Completed infusion; IV Intake: 100ml ko1 11:04 Drug: Solu-CORTEF IVP 100 mg IVP once Route: IVP; Site: right antecubital; ko1 11:35 Follow up: Response: No adverse reaction ko1 Disposition Summary: 04/17/23 09:59 Transfer Ordered Notes: Transfer Location: [facility] chyna Reason: Higher level of care chyna Condition: Stable chyna Problem: new chyna Symptoms: have improved chyna Accepting Physician: to chayo leal(04/17/23 12:28) ko1 Diagnosis - Severe sepsis with septic shock chyna - Other cholelithiasis with obstruction - dilated CBD chyna - Dehydration chyna - Elevated white blood cell count chyna - Hypokalemia chyna - Non ST elevation MA chyna - Vomiting chyna - GI Bleed/ Gastrointestinal hemorrhage, unspecified - UPPER , STABLE chyna - Paroxysmal atrial fibrillation chyna Forms: - Medication Reconciliation Form chyna - SBAR form chyna NIH Stroke Scale - NIH Stroke Score Date: 04/17/2023 Time: 08:06 Total Score = 0 10. Dysarthria (speech clarity - read or repeat words) - 0(Normal) 11. Extinction and Inattention (visual/tactile/auditory/spatial/personal) - 0(No abnormality) 1a. Level of Consciousness (LOC) - 0(Alert) 1b. Level of Consciousness (LOC) (Month \T\ Age) - 0(Both) 1c. LOC Commands (Open \T\ Closes Eyes/Job Setter) - 0(Both) 2. Best Gaze (Lateral Gaze Paresis) - 0(Normal) 3. Visual Field Loss - 0(No visual loss) 4. Facial Palsy - 0(Normal) 5a. Left Arm: Motor (10-second hold) - 0(No drift) 5b. Right Arm: Motor (10-second hold) - 0(No drift) 6a. Left Leg: Motor (5-second hold - always test supine) - 0(No drift) 6b. Right Leg: Motor (5-second hold - always test supine) - 0(No drift) 7. Limb Ataxia (finger/nose \T\ heel/loera - test with eyes open) - 0(Absent) 8. Sensory Loss (pinprick arms/legs/face) - 0(Normal) 9. Best Language: Aphasia (description/naming/reading) - 0(No aphasia) Initials: chyna Signatures: Dispatcher [employer] EDMatthew Cassidy MD MD cha Baxter, Heather RN Jeimy Yarbrough, TRISHA RN ko1 Corrections: (The following items were deleted from the chart) 10:02 09:59 to [facility] chyna clemente 12:28 10:02 to [facility] chyna [email or web address]
[2023-04-17 10:53] LABS: Specific Gravity 1.023 (1.005-1.030); Transitional Epithelial <5 /HPF (None Seen); Urine Bacteria <20 /HPF (<20); Urine Bilirubin NEGATIVE (Negative); Urine Blood Negative (Negative); Urine Clarity Turbid (Clear); Urine Color Dark-Yellow (Yellow); Urine Glucose NEGATIVE (Negative); Urine Mucus Slight /HPF (None Seen); Urine Protein 1+ (Negative); Urine RBC <5 /HPF (None Seen); Urine Triple Phosphate Crystal Few /HPF (None Seen); Urine Urobilinogen Normal (Normal)
[2023-04-17 12:33] VITALS: TEMP 98.3
[2023-04-17 12:53] VITALS: BP 99/69; O2SAT 98
--- NOTE | 2023-04-19 11:00 | EKG ---
Test Date: 2023-04-17 Test Time: 08:12:49 Reinforcement Maker: EDDI MEASUREMENT RESULTS: Intervals: Rate: 82 VT: 160 QRSD: 76 QT: 410 QTc: 479 [place]: P: 42 VT: 160 QRS: 35 T: 41 INTERPRETIVE STATEMENTS: Sinus rhythm with premature atrial complexes T wave abnormality, consider inferior ischemia Prolonged QT Abnormal ECG Compared to ECG 03/13/2023 18:31:45 Possible ischemia now present Prolonged QT interval now present Aberrant conduction of supraventricular beat(s) no longer present T-wave abnormality still present Electronically Signed On 04-19-23 10:57:24 CHILD AND ADOLESCENT PSYCHOLOGIST by Ramon Mccabe
== END ==
LOC: ER 07:08
DX: K80.81 Other cholelithiasis with obstruction (principal); R65.21 Severe sepsis with septic shock; I22.2 Subsequent non-ST elevation (NSTEMI) myocardial infarction; I21.9 Acute myocardial infarction, unspecified; E86.0 Dehydration; E87.6 Hypokalemia; D72.829 Elevated white blood cell count, unspecified; K92.2 Gastrointestinal hemorrhage, unspecified; I48.0 Paroxysmal atrial fibrillation; I10 Essential (primary) hypertension; Z79.82 Long term (current) use of aspirin; Z11.52 Encounter for screening for COVID-19
CPT/HCPCS: 96365; 96361; 93005; 87040 ×2; 85025; 81001; 80048; 36415; 82140; 86900; 83735; 86850; 85610; 86901; 80076; 83605 ×2; 84443; 84484; 83690; 83880; 87804 ×2; 74176; 71045; 76705; 96375; 99285; 96366; 87811; J2543; C9113; J2405; P9047; J7030; J3480